=== PATIENT | female | born 1980 | race Caucasian/White ===

== ENCOUNTER 2018-04-26 16:45 | Emergency (ER) | payer MEDICAID, OTHER ==
--- NOTE | 2018-04-26 17:07 | Emergency Department Record ---
History of Present Illness - General Chief Complaint: Abdominal Pain Stated Complaint: PAIN IN LOWER LT ABD Time Seen by Provider: 04/26/18 16:57 Source: Patient Mode of Arrival: Ambulatory Limitations: No limitations - History of Present Illness Initial Comments: The patient is here due to a 2 hour hx of sharp stabbing RLQ AP. The pain is near the inguinal ligament and does seem to radiate to the thigh at times. She denies any nausea, vomiting, diarrhea, dysuria, or any vaginal symptoms. The patient did have a similar issues 2.5 months ago on the L side. At that time she came into the ER and had normal lab tests and a neg pelvic US. Now the patient is concerned she may have a kidney stone. MD Complaint: Abdominal pain Onset/Timin -: Hour(s) Location: RLQ Radiation: RLQ, Other Severity: Moderate Severity scale (1-10): 7 Quality: Aching, Cramping Consistency: Intermittent Improves With: Nothing Context: Foreign travel - Related Data Home Medications Medication Instructions Recorded Confirmed Last Taken No Home Med [NO HOME MEDS] 04/26/18 04/26/18 Unknown Allergies Allergy/AdvReac Type Severity Reaction Status Date / Time No Known Allergies Allergy PT UNSURE Verified 04/26/18 16:55 OF REACTION Travel Screening - Travel/Exposure Within Last 30 Days Have you traveled within the last 30 days?: No - Travel/Exposure Within Last Year Have you traveled outside the [place] in the last year?: No - Additonal Travel Details Have you been exposed to anyone with a communicable illness?: No - Travel Symptoms Symptom Screening: None Review of Systems Constitutional: Denies: Chills, Fever Eyes: Denies: Eye discharge ENT: Denies: Congestion Respiratory: Denies: Cough, Dyspnea Past Medical History - SOCIAL HISTORY Smoking Status: Never smoker Alcohol Use: Occasional Drug Use: None - RESPIRATORY Hx Respiratory Disorders: No - CARDIOVASCULAR Hx Cardio Disorders: No - NEURO Hx Neuro Disorders: No - GI Hx GI Disorders: No - Hx Genitourinary Disorders: No - ENDOCRINE Hx Endocrine Disorders: No - MUSCULOSKELETAL Hx Musculoskeletal Disorders: No - PSYCH Hx Psych Problems: No - HEMATOLOGY/ONCOLOGY Hx Hematology/Oncology Disorders: No Family Medical History Any Significant Family History?: Yes Physical Exam - General General Appearance: Alert, Oriented x3, Cooperative, No acute distress - Head Head exam: Atraumatic, Normocephalic, Normal inspection - Eye Eye exam: Normal appearance, PERRL - Neck Neck exam: Normal inspection, Full ROM. negative: Tenderness - Respiratory Respiratory exam: Normal lung sounds bilaterally. negative: Respiratory distress - Cardiovascular Cardiovascular Exam: Regular rate, Normal rhythm, Normal heart sounds - GI/Abdominal GI/Abdominal exam: Soft, Normal bowel sounds. negative: Distended, Rebound, Rigid, Tenderness (The abdomen is nontender in all 4 quads.) - Extremities Extremities exam: Normal inspection, Full ROM, Normal capillary refill. negative: Tenderness Course Vital Signs 04/26/18 16:47 Temperature 97.8 F Pulse Rate 68 Respiratory 18 Rate Blood Pressure 152/112 Pulse Ox 99 - Reevaluation(s) Reevaluation #1: The patient is doing very well at this time. Her pain has resolved and she is presently pain free. I did discuss the need to see her PCP next week for recheck and to discuss the issues. She has an appointment on Sunday and will comply. 04/26/18 18:44 Medical Decision Making - Data Complexity MDM Data: Labs Ordered and/or Reviewed, X-Ray Ordered and/or Reviewed - Lab Data Result diagrams: 04/26/18 17:10 04/26/18 17:10 - Radiology Data Radiology results: Report reviewed (CT: Neg for any acute abnormalities.) Disposition Disposition: Discharge Clinical Impression: RLQ abdominal pain Disposition: Home, Self-Care Condition: (2) Stable Instructions: Abdominal Pain (ED) Additional Instructions: Please drink plenty of fluids and take Tylenol or Motrin if needed. Please see your family doctor next week as planned and return to the ER for any worsening symptoms. Forms: Patient Portal Access Time of Disposition: 18:43 Quality - Quality Measures Quality Measures: N/A - Blood Pressure Screening View Details: Yes Does Patient Have Any of the Following: No Blood Pressure Classification: Hypertensive Reading Systolic Measurement: 152 Diastolic Measurement: 112 Screening for High Blood Pressure: < First Hypertensive BP, F/U Documented > [ G8950] First Hypertensive Follow-up Interventions: Referral to alternative/primary care provider.
[2018-04-26 17:17] LABS: BASO % 0.4 % (0-6); EOS % 1.7 % (0-6); GRAN % 68.2 % (47-80); HEMATOCRIT 41.4 % (35.0-47.0); HEMOGLOBIN 13.3 gm/dl (11.6-16.0); LYMPH % 21.4 % (16-45); MEAN CELL VOLUME 86.3 fl (81-97); MEAN CORPUSCULAR HEMOGLOBIN 27.7 pg (27-33); MEAN CORPUSCULAR HGB CONC 32.1 g/dl (32-36); MEAN PLATELET VOLUME 10.2 fl (7.4-10.4); MONO % 8.3 % (0-9); PLATELET COUNT 269 K/uL (130-400); RED CELL DISTRIBUTION WIDTH 13.2 % (11.5-14.5); URINE APPEARANCE CLEAR; URINE BILIRUBIN NEGATIVE (NEGATIVE); URINE BLOOD NEGATIVE (NEGATIVE); URINE COLOR YELLOW; URINE GLUCOSE (UA) NEGATIVE (NEGATIVE); URINE KETONE NEGATIVE (NEGATIVE); URINE LEUKOCYTE ESTERASE NEGATIVE (NEGATIVE); URINE NITRITE NEGATIVE (NEGATIVE); URINE PROTEIN NEGATIVE (NEGATIVE); URINE UROBILINOGEN 0.2 E.U./dL (0.20 - 1.00); WHITE BLOOD COUNT W/O DIFF 7.8 K/uL (4.2-12.2)
[2018-04-26 17:21] LABS: HCG,QUALITATIVE URINE NEGATIVE (NEGATIVE)
[2018-04-26] MEDS ORDERED: KETOROLAC 30 MG/ML VIAL IVP ONE (17:21)
[2018-04-26 17:30] LABS: BLOOD UREA NITROGEN 16 mg/dL (6-20); CREATININE 0.8 mg/dL (0.5-0.9); EST GLOMERULAR FILTRATION RATE > 60 mL/min
[2018-04-26 17:33] LABS: GLUCOSE,RANDOM 103 mg/dL (74-109)
--- NOTE | 2018-04-29 09:55 | CT SCAN REPORT ---
EXAM: CT OF THE ABDOMEN AND PELVIS WITHOUT CONTRAST HISTORY: RIGHT LOWER QUADRANT PAIN EXTENDING INTO RIGHT THIGH FOR TWO HOURS. TECHNIQUE: Helical CT examination of the abdomen and pelvis was performed without oral or intravenous contrast administration. Lack of oral and IV contrast utilization limits evaluation of the bowel and solid viscera respectively. Comparison: Pelvic ultrasound dated 01/31/18. FINDINGS: There is mild dependent atelectasis in each lung base. No pleural or pericardial effusion. The heart is not enlarged. The liver, spleen, pancreas, adrenal glands, and kidneys are normal in appearance though the liver dome is not entirely included in the field of view. The gallbladder is unremarkable. No biliary ductal dilatation is seen. No intraabdominal nor retroperitoneal lymphadenopathy. The vasculature as visualized is unremarkable. There is trace fluid in the cul-de-sac. This is nonspecific, but likely physiologic. There are a couple subtle hypodense areas within the uterus with the largest located right of midline measuring 3.3 x 2.1 cm and the smaller located left of midline measuring 2.0 x 2.0 cm. These cannot be further characterized. A uterine fibroid was suggested on prior ultrasound examination. No other evidence of pelvic mass nor adenopathy. No bowel dilatation nor bowel wall thickening. The appendix is visualized and normal in appearance. A few nonenlarged mesenteric lymph nodes are noted within the right lower quadrant, nonspecific. No intrinsic urinary bladder abnormality is seen. A tiny fat filled umbilical hernia is present. Additionally, there is a tiny fat filled ventral wall hernia just above the umbilicus. The abdominal wall is otherwise intact. No lytic or blastic bone lesion. Mild degenerative changes are again noted scattered within the visualized spine. IMPRESSION: 1. SMALL AMOUNT OF FREE FLUID IN THE CUL-DE-SAC IS NONSPECIFIC, BUT LIKELY PHYSIOLOGIC. 2. SUBTLE NODULAR HYPODENSITIES WITHIN THE UTERUS. THESE CANNOT BE FURTHER CHARACTERIZED. A SINGLE FIBROID WAS SUGGESTED ON PRIOR ULTRASOUND EXAMINATION DATED 01/31/18. 3. NORMAL APPENDIX. 4. THERE IS A TINY FAT FILLED UMBILICAL HERNIA AND A TINY FAT FILLED PERIUMBILICAL HERNIA, UNCOMPLICATED. JOB NUMBER: [id number] [facility]
== END 2018-04-26 19:01 | disposition home or self-care (01) ==
LOC: ER 16:45
DX: R10.31 Right lower quadrant pain (principal)
CPT/HCPCS: 74176; 80048; 81003; 81025; 85025; 99283; 99284

== ENCOUNTER 2018-06-29 15:47 | Emergency (ER) | payer MEDICAID, OTHER ==
[2018-06-29] MEDS ORDERED: 0.9 % SODIUM CHLORIDE 1,000 ML BAG IV ONE (16:20)
[2018-06-29] MEDS ORDERED: ONDANSETRON HCL IV 4 MG/2 ML VIAL IVP ONE (16:20)
[2018-06-29] MEDS ORDERED: KETOROLAC 30 MG/ML VIAL IVP ONE (16:20)
--- NOTE | 2018-06-29 16:22 | Emergency Department Record ---
History of Present Illness - General Chief Complaint: Abdominal Pain Stated Complaint: LOW ABD PAIN Time Seen by Provider: 06/29/18 16:04 Source: Patient Mode of Arrival: Ambulatory Limitations: No limitations - History of Present Illness Initial Comments: 37 yo female presents with left lower abdominal pain. She has been having similar pain since January. She reports she has been in the ED, had and US, a CT scan and saw Dr Mena [facility]. No specific diagnosis has been made. No nausea , vomiting or diarrhea. No fever. No chills. The pain does seem to radiate to the back at times. No rash. She states it lasts 3-4 hours then resolves only to return. She has had 2 c-sections in the past. US 01/31/18 Questionable tiny fibroid, small FF in cul de sac. May be hemorrhagic cyst CT 04/26/18 Small FF in sac, possible small fibroid, tiny umbilical hernia, fat filled. MD Complaint: Abdominal pain -: Month(s) (January) Location: LLQ Radiation: LLQ Migration to: LLQ Severity: Moderate Quality: Aching, Cramping, Sharp Consistency: Intermittent Improves With: Nothing Worsens With: Nothing Context: Other Associated Symptoms: Other (vaginal bleeding) - Related Data Previous Rx's Medication Instructions Recorded Metronidazole [Flagyl] 500 mg PO BID #14 tablet 06/29/18 Naproxen [Naprosyn] 500 mg PO Q12H #20 tab. 06/29/18 Allergies Allergy/AdvReac Type Severity Reaction Status Date / Time No Known Allergies Allergy PT UNSURE Verified 04/26/18 16:55 OF REACTION Review of Systems Constitutional: Denies: Chills, Fever, Malaise, Weakness Eyes: Denies: Eye discharge ENT: Denies: Congestion, Throat pain Respiratory: Denies: Cough Cardiovascular: Denies: Chest pain, Palpitations, Syncope Endocrine: Denies: Fatigue Gastrointestinal: Reports: Abdominal pain, Nausea. Denies: Constipation, Diarrhea, Hematemesis, Hematochezia, Melena, Vomiting Genitourinary: Denies: Dysuria, Urgency Skin: Denies: Bruising, Change in color, Rash Neurological: Denies: Numbness, Weakness Psychiatric: Denies: Anxiety Hematological/Lymphatic: Denies: Blood Clots, Easy bleeding, Easy bruising, Swollen glands Past Medical History - SOCIAL HISTORY Smoking Status: Never smoker Drug Use: None - RESPIRATORY Hx Respiratory Disorders: No - CARDIOVASCULAR Hx Cardio Disorders: No - NEURO Hx Neuro Disorders: No - GI Hx GI Disorders: No - Hx Genitourinary Disorders: No - ENDOCRINE Hx Endocrine Disorders: No - MUSCULOSKELETAL Hx Musculoskeletal Disorders: No - PSYCH Hx Psych Problems: No - HEMATOLOGY/ONCOLOGY Hx Hematology/Oncology Disorders: No Physical Exam - General General Appearance: Alert, Oriented x3, Cooperative, No acute distress Limitations: No limitations - Head Head exam: Normal inspection - Eye Eye exam: Normal appearance. negative: Conjunctival injection, Scleral icterus - ENT ENT exam: Normal exam, Mucous membranes moist Ear exam: Normal external inspection Nasal Exam: Normal inspection Mouth exam: Normal external inspection - Neck Neck exam: Normal inspection, Full ROM. negative: Tenderness - Respiratory Respiratory exam: Normal lung sounds bilaterally. negative: Respiratory distress - Cardiovascular Cardiovascular Exam: Regular rate, Normal rhythm, Normal heart sounds - GI/Abdominal GI/Abdominal exam: Soft, Tenderness (The abdomen is soft but tender in the LLQ, no mass or obvious hernia). negative: Distended, Guarding, Rebound, Rigid - Rectal Rectal exam: Deferred - exam: Normal bimanual exam, Vaginal bleeding (few small clots). negative: Abnormal external exam, Adnexal mass (L), Adnexal mass (R), Adnexal tenderness ( L), Adnexal tenderness (R), Cervical discharge, cervical motion tenderness, Vaginal discharge, Vaginal erythema - Extremities Extremities exam: Normal inspection - Back Back exam: Reports: Normal inspection, Full ROM. Denies: Muscle spasm, Rash noted, Tenderness - Neurological Neurological exam: Alert, Normal gait, Oriented X3, Reflexes normal - Psychiatric Psychiatric exam: Normal affect, Normal mood Course - Reevaluation(s) Reevaluation #1: 06/29/18 17:51 The pain is well controlled at this time Pelvic was completed. Awaiting results. 06/29/18 18:10 No acute changes on the CBC or CMP The UA is negative for infection The Wet Prep is consistent with bacterial vaginosis The patient was informed We discussed a consult with General Surgery as an outpatient for her recurrent abdominal pain Rx for Flagyl provided as well. Medical Decision Making - Lab Data Result diagrams: 06/29/18 16:20 06/29/18 16:20 Disposition Disposition: Discharge Clinical Impression: Abdominal pain, Bacterial vaginosis Disposition: Home, Self-Care Condition: (1) Good Instructions: Bacterial Vaginosis (ED), Abdominal Pain (ED) Additional Instructions: Take the prescriptions provided today as directed. Call your family doctor. Call to schedule the next available appointment for a recheck. Return to ED if your symptoms worsen or if you have any new concerns. Review the final Emergency Record and test results with your doctor on follow up You have been referred to Dr Santos in the surgery clinic at [facility] for the current abdominal pain. Prescriptions: Metronidazole [Flagyl] 500 mg PO BID #14 tablet Naproxen [Naprosyn] 500 mg PO Q12H #20 tab.dr Referrals: [facility] Specialty Clinics [Provider Group] Phillip Santos [DOCTOR OF OSTEOPATH] - Forms: Patient Portal Access Time of Disposition: 17:45 Quality - Quality Measures Quality Measures: N/A - Blood Pressure Screening Does Patient Have Any of the Following: No Blood Pressure Classification: Hypertensive Reading Systolic Measurement: 145 Diastolic Measurement: 104 Screening for High Blood Pressure: < Pre-Hypertensive BP, F/U Documented > [ G8950] Pre-Hypertensive Follow-up Interventions: Referral to alternative/primary care provider.
[2018-06-29 17:24] LABS: BASO % 0.5 % (0-6); EOS % 1.4 % (0-6); GRAN % 70.6 % (47-80); HEMOGLOBIN 13.7 gm/dl (11.6-16.0); LYMPH % 21.5 % (16-45); MEAN CELL VOLUME 86.7 fl (81-97); MEAN CORPUSCULAR HEMOGLOBIN 27.6 pg (27-33); MEAN CORPUSCULAR HGB CONC 31.9 g/dl (32-36); MEAN PLATELET VOLUME 11.4 fl (7.4-10.4); PLATELET COUNT 255 K/uL (130-400); RED BLOOD COUNT 4.96 M/uL (3.80-5.40); RED CELL DISTRIBUTION WIDTH 13.1 % (11.5-14.5); WHITE BLOOD COUNT W/O DIFF 7.8 K/uL (4.2-12.2)
[2018-06-29 17:32] LABS: BLOOD UREA NITROGEN 15 mg/dL (6-20); CREATININE 0.8 mg/dL (0.5-0.9); EST GLOMERULAR FILTRATION RATE > 60 mL/min; TOTAL PROTEIN 7.6 g/dL (6.6-8.7)
[2018-06-29 17:34] LABS: GLUCOSE,RANDOM 93 mg/dL (74-109)
[2018-06-29 17:37] LABS: ALB/GLOB RATIO 1.9 (1.1-1.8); ALKALINE PHOSPHATASE 67 U/L (35-104); ALT/SGPT 17 U/L (<33); AST/SGOT 14 U/L (10.0-35.0); LIPASE 25 U/L (13-60)
[2018-06-29 18:04] LABS: URINE APPEARANCE CLEAR; URINE BILIRUBIN NEGATIVE (NEGATIVE); URINE BLOOD SMALL (NEGATIVE); URINE COLOR YELLOW; URINE GLUCOSE (UA) NEGATIVE (NEGATIVE); URINE KETONE NEGATIVE (NEGATIVE); URINE LEUKOCYTE ESTERASE NEGATIVE (NEGATIVE); URINE NITRITE NEGATIVE (NEGATIVE); URINE PROTEIN NEGATIVE (NEGATIVE); URINE UROBILINOGEN 0.2 E.U./dL (0.20 - 1.00)
[2018-06-29] MEDS ORDERED: HYDROCODONE/APAP 5/325MG TABLET PO ONE (18:17)
[2018-06-29 18:20] LABS: URINE EPITHELIAL CELLS 0 - 2 (FEW); URINE RBC 0 - 2 (NONE SEEN); URINE WBC 0 - 2 (0-2/hpf)
== END 2018-06-29 18:44 | disposition home or self-care (01) ==
LOC: ER 15:47
DX: R10.32 Left lower quadrant pain (principal); N76.0 Acute vaginitis; N93.9 Abnormal uterine and vaginal bleeding, unspecified
CPT/HCPCS: 99284 ×2; 96374; 96375; 83690; 85025; 80053; 81001; 84703; Q0111; J1885; J2405; 87210; J7030

== ENCOUNTER 2019-09-27 11:00 | Emergency (ER) | payer BC, OTHER ==
[2019-09-27] MEDS ORDERED: POLYVINYL ALCOHOL OPTH OPTH PRN (11:33)
[2019-09-27] MEDS ORDERED: PROPARACAINE HCL OPTH 15ML BTL OPTH ONE (11:34)
[2019-09-27] MEDS ORDERED: EYE IRRIGATION SOLU. (SOD BOR/BORIC AC/H20/NACL) 118ML BTL OPTH ONE (11:37)
--- NOTE | 2019-09-27 11:46 | Emergency Department Record ---
History of Present Illness - General Chief complaint: Eye Problem Stated complaint: EYE PAIN Time Seen by Provider: 09/27/19 11:22 Mode of Arrival: Ambulatory - History of Present Illness Initial comments: sawing branches over head with a manual saw and got something in he eye right, yesterday Onset/Timin -: Days(s) Onset Description: Sudden Location: Right eye Place: Street/outdoors If Injury: Other Eye Symptoms: Burning, Pain, Redness If Pain, Quality: Other Consistency: Constant Associated Symptoms: None Treatments Prior to Arrival: None - Related Data Visual acuity (L) = 20/: 20 Visual acuity (R) = 20/: 20 With correction: No Hx Tetanus Toxoid Vaccination: No Patient Tetanus UTD (within 5 yrs): No Home Medications Medication Instructions Recorded Confirmed Last Taken Norethindrone-E.estradiol-Iron 1 tab PO DAILY 09/27/19 09/27/19 Unknown [Riana Fe 1.5-30 Tablet] Previous Rx's Medication Instructions Recorded Sulfacetamide Sodium [Bleph-10] 1 - 2 drop AFFEYE QID #5 ml 09/27/19 Allergies Allergy/AdvReac Type Severity Reaction Status Date / Time No Known Allergies Allergy PT UNSURE Verified 04/26/18 16:55 OF REACTION Travel Screening - Travel/Exposure Within Last 30 Days Have you traveled within the last 30 days?: No Review of Systems Reviewed: No additional complaints except as noted below Constitutional: Reports: As per HPI. Denies: Chills, Fever, Malaise, Night sweats, Weakness, Weight change Eyes: Reports: As per HPI, Other (FB sensation right eye). Denies: Eye discharge, Eye pain, Photophobia, Vision change ENT: Reports: As per HPI. Denies: Congestion, Dental pain, Ear pain, Epistaxis, Hearing loss, Throat pain Respiratory: Reports: As per HPI. Denies: Cough, Dyspnea, Hemoptysis, Stridor, Wheezes Cardiovascular: Reports: As per HPI. Denies: Arrhythmia, Chest pain, Dyspnea on exertion, Edema, Murmurs, Orthopnea, Palpitations, Paroxysmal nocturnal dyspnea, Rheumatic Fever, Syncope Endocrine: Reports: As per HPI. Denies: Fatigue, Heat or cold intolerance, Polydipsia, Polyuria Gastrointestinal: Reports: As per HPI. Denies: Abdominal pain, Constipation, Diarrhea, Hematemesis, Hematochezia, Melena, Nausea, Vomiting Genitourinary: Reports: As per HPI. Denies: Abnormal menses, Discharge, Dyspareunia, Dysuria, Frequency, Hematuria, Incontinence, Retention, Urgency Musculoskeletal: Reports: As per HPI. Denies: Arthralgia, Back pain, Gout, Joint swelling, Myalgia, Neck pain Skin: Reports: As per HPI. Denies: Bruising, Change in color, Change in hair/nails, Lesions, Pruritus, Rash Neurological: Reports: As per HPI. Denies: Abnormal gait, Confusion, Headache, Numbness, Paresthesias, Seizure, Tingling, Tremors, Vertigo, Weakness Psychiatric: Reports: As per HPI. Denies: Anxiety, Auditory hallucinations, Depression, Homicidal thoughts, Suicidal thoughts, Visual hallucinations Hematological/Lymphatic: Reports: As per HPI. Denies: Anemia, Blood Clots, Easy bleeding, Easy bruising, Swollen glands Past Medical History - SOCIAL HISTORY Smoking Status: Never smoker - RESPIRATORY Hx Respiratory Disorders: No - CARDIOVASCULAR Hx Cardio Disorders: No - NEURO Hx Neuro Disorders: No - GI Hx GI Disorders: No - Hx Genitourinary Disorders: No - ENDOCRINE Hx Endocrine Disorders: No - MUSCULOSKELETAL Hx Musculoskeletal Disorders: No - PSYCH Hx Psych Problems: No - HEMATOLOGY/ONCOLOGY Hx Hematology/Oncology Disorders: No Family Medical History Any Significant Family History?: No Physical Exam - General General Appearance: Alert, Oriented x3, Cooperative, No acute distress - Head Head exam: Normal inspection - Eye Eye exam: Normal appearance, PERRL, Other (flurscein negative, everted upper eyelid and FB present and removed with a q tip) Pupils: Normal accommodation With correction: No - ENT ENT exam: Normal exam, Mucous membranes moist, Normal external ear exam, Normal orophraynx, TM's normal bilaterally Ear exam: Normal external inspection. negative: External canal tenderness Nasal Exam: Normal inspection. negative: Discharge, Sinus tenderness Mouth exam: Normal external inspection, Tongue normal Teeth exam: Normal inspection. negative: Dental caries Throat exam: Normal inspection. negative: Tonsillar erythema, Tonsillar exudate - Neck Neck exam: Normal inspection, Full ROM. negative: Tenderness - Respiratory Respiratory exam: Normal lung sounds bilaterally. negative: Respiratory distress - Cardiovascular Cardiovascular Exam: Regular rate, Normal rhythm, Normal heart sounds - GI/Abdominal GI/Abdominal exam: Soft, Normal bowel sounds. negative: Tenderness - Rectal Rectal exam: Deferred - exam: Deferred - Extremities Extremities exam: Normal inspection, Full ROM, Normal capillary refill. negative: Tenderness - Back Back exam: Reports: Normal inspection, Full ROM. Denies: Muscle spasm, Rash noted, Tenderness - Neurological Neurological exam: Alert, Normal gait, Oriented X3, Reflexes normal - Psychiatric Psychiatric exam: Normal affect, Normal mood - Skin Skin exam: Dry, Intact, Normal color, Warm Course Vital Signs 09/27/19 11:07 Temperature 97.9 F Pulse Rate 71 Respiratory 18 Rate Blood Pressure 134/91 Pulse Ox 98 - Reevaluation(s) Reevaluation #1: remvved FB from under eylid right upper and her eye feels much better, used a q tip fluorscein negative slit lamp slight irritation of the cornea 09/27/19 11:46 09/27/19 11:49 Disposition Clinical Impression: Foreign body, eye Qualifiers: Encounter type: initial encounter Laterality: right Qualified Code(s): T15.91XA - Foreign body on external eye, part unspecified, right eye, initial encounter Corneal abrasion Qualifiers: Encounter type: initial encounter Laterality: right Qualified Code(s): S05.01XA - Injury of conjunctiva and corneal abrasion without foreign body, right eye, initial encounter Disposition: Home, Self-Care Condition: (1) Good Instructions: Corneal Abrasion (ED), Eye Foreign Body (ED) Additional Instructions: follow up with family Dr in 2-3 days or return to ED if worse sooner Prescriptions: Sulfacetamide Sodium [Bleph-10] 1 - 2 drop AFFEYE QID #5 ml Forms: Patient Portal Access Time of Disposition: 11:55 Quality - Quality Measures Quality Measures: N/A - Blood Pressure Screening Does Patient Have Any of the Following: No Blood Pressure Classification: Hypertensive Reading Systolic Measurement: 134 Diastolic Measurement: 91 Screening for High Blood Pressure: < Pre-Hypertensive BP, F/U Documented > [G8950] Pre-Hypertensive Follow-up Interventions: Referral to alternative/primary care provider.
== END 2019-09-27 12:10 | disposition home or self-care (01) ==
LOC: ER 11:00
DX: T15.91XA Foreign body on external eye, part unspecified, right eye, initial encounter (principal); S05.01XA Injury of conjunctiva and corneal abrasion without foreign body, right eye, initial encounter; W22.8XXA Striking against or struck by other objects, initial encounter; Y93.H9 Activity, other involving exterior property and land maintenance, building and construction; Y92.410 Unspecified street and highway as the place of occurrence of the external cause
CPT/HCPCS: 65205; 99283

== ENCOUNTER 2019-11-17 13:24 | Emergency (ER) | payer BC, OTHER ==
[2019-11-17] MEDS ORDERED: 0.9 % SODIUM CHLORIDE 1,000 ML BAG IV ONE (14:32)
--- NOTE | 2019-11-17 14:34 | Emergency Department Record ---
History of Present Illness - General Chief Complaint: Back Pain/Injury Stated Complaint: LOWER BACK SPASM Time Seen by Provider: 11/17/19 14:25 Source: Patient Mode of Arrival: Ambulatory Limitations: No limitations - History of Present Illness Initial Comments: The patient is here due to multiple complaints. She has had some R lower back spasms off and on for 2 days. She also has been painting her bathroom and when she was finishing yesterday and today she developed a feeling of shaking all over and body spasms. The symptoms did resolve when she left the room yesterday but did return today. After today's episode she did have some dyspnea and chest heaviness like she could not catch her breath. The back spasms seem to be better now. There has been no CP, fever, cough, or vomiting. The patient has no cardiac risk factors and is on OCP's. MD Complaint: Back pain Onset/Timin -: Days(s) Place: Home Severity: Moderate Severity scale (1-10): 5 Context: Other - Related Data Allergies Allergy/AdvReac Type Severity Reaction Status Date / Time No Known Allergies Allergy PT UNSURE Verified 11/17/19 14:25 OF REACTION Travel Screening - Travel/Exposure Within Last 30 Days Have you traveled within the last 30 days?: Yes Location Detail:: [place]. - Travel/Exposure Within Last Year Have you traveled outside the [place] in the last year?: Yes Location Detail:: [place]. - Additonal Travel Details Have you been exposed to anyone with a communicable illness?: No - Travel Symptoms Symptom Screening: None Review of Systems Constitutional: Reports: Malaise. Denies: Chills, Fever Eyes: Denies: Eye discharge ENT: Denies: Congestion Respiratory: Reports: Dyspnea. Denies: Cough, Hemoptysis, Stridor, Wheezes Cardiovascular: Reports: Dyspnea on exertion, Palpitations. Denies: Chest pain Endocrine: Reports: Fatigue Gastrointestinal: Denies: Nausea Genitourinary: Denies: Dysuria Musculoskeletal: Denies: Arthralgia Skin: Denies: Bruising Past Medical History - SOCIAL HISTORY Smoking Status: Never smoker Alcohol Use: Occasional Drug Use: None - RESPIRATORY Hx Respiratory Disorders: No - CARDIOVASCULAR Hx Cardio Disorders: No - NEURO Hx Neuro Disorders: No - GI Hx GI Disorders: No - Hx Genitourinary Disorders: No - ENDOCRINE Hx Endocrine Disorders: No - MUSCULOSKELETAL Hx Musculoskeletal Disorders: No - PSYCH Hx Psych Problems: No - HEMATOLOGY/ONCOLOGY Hx Hematology/Oncology Disorders: No Family Medical History Any Significant Family History?: Yes Physical Exam - General General Appearance: Alert, Oriented x3, Cooperative, No acute distress - Head Head exam: Atraumatic, Normocephalic, Normal inspection - Eye Eye exam: Normal appearance, PERRL, EOMI - ENT Throat exam: Normal inspection. negative: Tonsillar erythema, Tonsillar exudate - Neck Neck exam: Normal inspection, Full ROM. negative: Tenderness - Respiratory Respiratory exam: Normal lung sounds bilaterally. negative: Respiratory distress - Cardiovascular Cardiovascular Exam: Regular rate, Normal rhythm, Systolic murmur (2/6 LLSB). negative: Normal heart sounds - GI/Abdominal GI/Abdominal exam: Soft, Normal bowel sounds. negative: Tenderness - Extremities Extremities exam: Normal inspection, Full ROM, Normal capillary refill. negative: Calf tenderness, Pedal edema, Tenderness - Neurological Neurological exam: Alert, Normal gait, Oriented X3. negative: Motor sensory deficit - Psychiatric Psychiatric exam: negative: Anxious Course Vital Signs 11/17/19 14:20 Temperature 99.4 F Pulse Rate [ 120 H Pulse Ox Probe] Respiratory 20 Rate Blood Pressure 129/94 [Left Arm] Pulse Ox 97 - Reevaluation(s) Reevaluation #1: The patient is doing very well at this time. She denies any CP or SOB or pleuritic pain presently. Her HR is much improved also and she appears very comfortable. I did discuss the elevated D-dimer and the need for a chest CT. 11/17/19 15:28 Reevaluation #2: The patient is doing well at this time and denies any Cp, SOB, or ROB. She is resting comfortably. 11/17/19 17:04 Reevaluation #3: The patient is doing a lot better at this time. She is resting comfortably and has no complaints of pain or discomfort or SOB or dyspnea. I did discuss the neg chest CT for PE with the patient. We did doppler her legs for clots and are still waiting on the results of that test. I did discuss the plan with the patient and did recommend admission due to the low but not zero risk of a cardiac issue. I explained to the patient that her workup is all neg and with her lack of risk factors her risk of having a cardiac event would be < 5%. The patient understands and accepts the risks and would like to go home. She understands that having an undiagnosed cardiac event could lead to an DE, stroke, disability and . The patient understands and accepts the risks. We will do a 2nd EKG and Trop to be sure there is no active event occuring at this time. 11/17/19 18:49 Reevaluation #4: 2nd EKG: NSR at 99, neg ST-T changes. Normal EKG. 11/17/19 18:56 Medical Decision Making - Data Complexity MDM Data: Labs Ordered and/or Reviewed, X-Ray Ordered and/or Reviewed, EKG Ordered and/or Reviewed - Lab Data Result diagrams: 11/17/19 14:46 11/17/19 14:46 - EKG Data -: EKG Interpreted by Me EKG: No Acute Changes (Sinus tach at 106. Neg ST-T changes.) - Radiology Data Radiology results: Report reviewed (CXR: Neg. Chest CTA: Neg for PE.) Disposition Disposition: Discharge Clinical Impression: Muscle spasm Disposition: Home, Self-Care Condition: (2) Stable Instructions: Muscle Spasm (ED) Additional Instructions: Please use Tylenol or Motrin for pain and drink plenty of fluids. Please see your family doctor later this week for recheck and have the D-dimer rechecked. Return to the ER for any return of the pain, any trouble breathing or shortness of breath. Forms: Patient Portal Access Time of Disposition: 19:04 Quality - Quality Measures Quality Measures: N/A - Blood Pressure Screening View Details: Yes Does Patient Have Any of the Following: No Blood Pressure Classification: Pre-Hypertensive BP Reading Systolic Measurement: 130 Diastolic Measurement: 77 Screening for High Blood Pressure: < Pre-Hypertensive BP, F/U Documented > [G8950] Pre-Hypertensive Follow-up Interventions: Referral to alternative/primary care provider.
[2019-11-17 14:54] LABS: ABSOLUTE NEUTROPHIL COUNT 8.02; HEMOGLOBIN 12.7 gm/dl (11.6-16.0); MEAN CELL VOLUME 87.6 fl (81-97); MEAN CORPUSCULAR HEMOGLOBIN 28.5 pg (27-33); MEAN CORPUSCULAR HGB CONC 32.6 g/dl (32-36); MEAN PLATELET VOLUME 10.5 fl (7.4-10.4); PLATELET COUNT 200 K/uL (130-400); RED BLOOD COUNT 4.45 M/uL (3.80-5.40); RED CELL DISTRIBUTION WIDTH 12.6 % (11.5-14.5); WHITE BLOOD COUNT W/O DIFF 8.9 K/uL (4.2-12.2)
[2019-11-17 14:59] LABS: URINE APPEARANCE CLEAR; URINE BILIRUBIN NEGATIVE (NEGATIVE); URINE BLOOD TRACE-I (NEGATIVE); URINE COLOR YELLOW; URINE GLUCOSE (UA) NEGATIVE (NEGATIVE); URINE KETONE 15 mg/dL (NEGATIVE); URINE NITRITE NEGATIVE (NEGATIVE); URINE PROTEIN NEGATIVE (NEGATIVE); URINE UROBILINOGEN 0.2 E.U./dL (0.20 - 1.00)
[2019-11-17 15:05] LABS: BLOOD UREA NITROGEN 16 mg/dL (6-20)
[2019-11-17 15:06] LABS: CREATININE 0.9 mg/dL (0.5-0.9); EST GLOMERULAR FILTRATION RATE > 60 mL/min; TOTAL PROTEIN 6.6 g/dL (6.6-8.7)
[2019-11-17 15:06] LABS: URINE LEUKOCYTE ESTERASE TRACE (NEGATIVE)
[2019-11-17 15:07] LABS: URINE WBC 0 - 2 (0-2/hpf)
[2019-11-17 15:08] LABS: GLUCOSE,RANDOM 108 mg/dL (74-109)
[2019-11-17 15:09] LABS: PLATELET ESTIMATE NORMAL (NORMAL)
[2019-11-17 15:11] LABS: ALB/GLOB RATIO 1.6 (1.1-1.8); ALBUMIN 4.1 g/dL (4.0-5.0); ALKALINE PHOSPHATASE 68 U/L (35-104); ALT/SGPT 10 U/L (<33); AST/SGOT 9 U/L (10.0-35.0)
--- NOTE | 2019-11-17 15:13 | RADIOLOGY REPORT ---
EXAMINATION: Two View Chest Radiographs EXAM DATE: 11/17/2019 3:03 PM TECHNIQUE: Frontal and lateral views INDICATION: ROB COMPARISON: None ENCOUNTER: Not applicable FINDINGS: The heart, mediastinum, and pulmonary vasculature are normal. No lung consolidation or pleural effu sions are present. IMPRESSION: Negative for active intrathoracic disease Dictated by: Bimal Pineda MD on 11/17/2019 3:10 PM. .
[2019-11-17 15:19] LABS: PARTIAL THROMBOPLASTIN TIME 32.7 SECONDS (24.5-39.1); PROTHROMBIN TIME (PATIENT) 10.2 SECONDS (9.5-12.1)
[2019-11-17 15:22] LABS: THYROID STIMULATING HORMONE 1.07 uIU/mL (0.270-4.20)
[2019-11-17] MEDS ORDERED: HEPARIN SODIUM 1000 UNIT/1 ML 10ML VIAL IVP ONE (15:22)
--- NOTE | 2019-11-17 17:23 | CT ANGIOGRAM REPORT ---
EXAMINATION: CT Angiography of the Thorax EXAM DATE: 11/17/2019 4:50 PM TECHNIQUE: Standard protocol CT angiogram images were obtained through the chest following the admini stration of intravenous contrast. Coronal and sagittal MIP 3-D reformations were performed. IV Contrast: The amount and type of contrast are recorded in the medical record. INDICATION: CP and ROB. COMPARISON: CXR 11/17/2019 ENCOUNTER: Not applicable FINDINGS: Pulmonary Artery: No pulmonary embolism is present. Aorta: No thoracic aortic aneurysm or dissection is present. Right Heart Strain: None. Heart : There is no pericardial effusion. Kia and Mediastinum: No lymphadenopathy. Lung Parenchyma: Normal. Central Airways: Normal. Pleural Effusion: None. Upper Abdomen: Small hiatal hernia. Musculoskeletal and Chest Wall: Unremarkable. IMPRESSION: 1. Negative pulmonary CTA 2. Small hiatal hernia Dictated by: Donnie Obrien MD on 11/17/2019 5:17 PM. .
--- NOTE | 2019-11-17 19:08 | ULTRASOUND REPORT ---
EXAMINATION: Bilateral Lower Extremity Venous Ultrasound EXAM DATE: 11/17/2019 6:32 PM TECHNIQUE: Color Doppler, spectral Doppler, and jorge scale evaluation of both lower extremities from the common femoral veins to the popliteal veins. Evaluation of the deep venous system of both lower extremities was performed. INDICATION: leg pain PROCEDURE: Duplex scan of extremity veins including responses to compression and other maneuvers; co mplete bilateral study FINDINGS: Right leg: The deep venous system of the right leg appears normal, with normal flow and compressibili ty. No filling defects are seen. Left leg: The deep venous system of the left leg appears normal, with normal flow and compressibility . No filling defects are seen. IMPRESSION: 1. Negative for DVT. Dictated by: Mario Christensen MD on 11/17/2019 6:59 PM. .
== END 2019-11-17 19:27 | disposition home or self-care (01) ==
LOC: ER 13:24
DX: M62.830 Muscle spasm of back (principal); R07.89 Other chest pain; R06.00 Dyspnea, unspecified; R79.89 Other specified abnormal findings of blood chemistry
CPT/HCPCS: 99284 ×2; 96374; 85730; 85610; 80053; 81001; 84443; 84703; 84484; 85379; 85027; 71046; 93970; 71275; 93005; 93010; Q9967; J7030

== ENCOUNTER 2019-11-19 19:01 | Emergency (ER) | payer BC, OTHER ==
--- NOTE | 2019-11-19 19:09 | Emergency Department Record ---
History of Present Illness - General Chief Complaint: Chest Pain Stated Complaint: CHEST PRESSURE Time Seen by Provider: 11/19/19 19:04 Source: Patient Mode of Arrival: Ambulatory Limitations: No limitations - History of Present Illness Initial Comments: 39 yo female presents with upper respiratory symptoms for about 3 weeks. On Sunday she developed shortness of breath and chest heaviness. She states the onset was while painting at home. She had a dry cough. She feels discomfort with deep inspiration. No fevers but she has been having chills and hot flashes. She was evaluated in the ED on Sunday. Her testing at that time was normal except an elevated D-Dimer. The abnormal D-Dimer was followed by a negative CTA of the chest and negative dopplers of the legs. Her symptoms have not significantly improved. She is not a smoker. No underlying heart of lung disease. She does have a travel history of a cruise to the [facility] October 26 to November 02. ([place], [facility], [facility]) She did do some excursions. She had URI type illness following this with cough, chills, hot flashes and body aches starting about on the 02 of November. This has improved but still mild body aches, occasional chills, no fevers. MD Complaint: Chest pain -: Days(s) Onset: Other Pain Location: Substernal Pain Radiation: None Severity: Moderate Quality: Heaviness Consistency: Constant Improves With: Rest Worsens With: Exertion, Inspiration, Movement Context: Other Anginal Symptoms: Dyspnea Other Symptoms: Other Treatments Prior to Arrival: None - Related Data On Oral Contraceptives: Yes Previous Rx's Medication Instructions Recorded Doxycycline Hyclate 100 mg PO BID #14 cap 11/19/19 Allergies Allergy/AdvReac Type Severity Reaction Status Date / Time No Known Allergies Allergy PT UNSURE Verified 11/19/19 19:29 OF REACTION Review of Systems Constitutional: Reports: Chills, Fever, Malaise, Weakness Eyes: Denies: Eye discharge, Eye pain, Photophobia, Vision change ENT: Reports: Congestion. Denies: Ear pain, Epistaxis Respiratory: Reports: Cough, Dyspnea. Denies: Wheezes Cardiovascular: Reports: Chest pain. Denies: Edema, Palpitations, Syncope Endocrine: Reports: Fatigue. Denies: Polydipsia, Polyuria Gastrointestinal: Denies: Abdominal pain, Diarrhea, Nausea, Vomiting Genitourinary: Denies: Dysuria, Urgency Musculoskeletal: Reports: Myalgia. Denies: Arthralgia, Joint swelling, Neck pain Skin: Denies: Bruising, Change in color, Rash Neurological: Reports: Headache. Denies: Numbness, Vertigo, Weakness Psychiatric: Denies: Anxiety Hematological/Lymphatic: Denies: Easy bleeding, Easy bruising, Swollen glands Past Medical History - SOCIAL HISTORY Smoking Status: Never smoker Alcohol Use: Occasional Drug Use: None - RESPIRATORY Hx Respiratory Disorders: No - CARDIOVASCULAR Hx Cardio Disorders: No - NEURO Hx Neuro Disorders: No - GI Hx GI Disorders: No - Hx Genitourinary Disorders: No - ENDOCRINE Hx Endocrine Disorders: No - MUSCULOSKELETAL Hx Musculoskeletal Disorders: No - PSYCH Hx Psych Problems: No - HEMATOLOGY/ONCOLOGY Hx Hematology/Oncology Disorders: No Family Medical History Any Significant Family History?: No Family Hx Comment (NOT TO BE USED IN PLACE OF ITEMS BELOW): denies Physical Exam - General General Appearance: Alert, Oriented x3, Cooperative, No acute distress Limitations: No limitations - Head Head exam: Atraumatic, Normocephalic, Normal inspection - Eye Eye exam: Normal appearance, PERRL. negative: Conjunctival injection, Scleral icterus - ENT ENT exam: Normal exam, Mucous membranes moist Ear exam: Normal external inspection Nasal Exam: Normal inspection Mouth exam: Normal external inspection Teeth exam: Normal inspection Throat exam: Normal inspection. negative: Tonsillar erythema, Tonsillomegaly, Tonsillar exudate, R peritonsillar mass - Neck Neck exam: Normal inspection, Full ROM. negative: Lymphadenopathy, Tenderness - Respiratory Respiratory exam: Normal lung sounds bilaterally. negative: Accessory muscle use, Decreased breath sounds, Prolonged expiratory, Rhonchi, Stridor, Wheezes - Cardiovascular Cardiovascular Exam: Regular rate, Normal rhythm, Normal heart sounds Peripheral Pulses: 2+: Radial (R), Radial (L) - GI/Abdominal GI/Abdominal exam: Soft. negative: Tenderness - Rectal Rectal exam: Deferred - exam: Deferred - Extremities Extremities exam: Normal inspection. negative: Pedal edema, Tenderness - Back Back exam: Denies: CVA tenderness (R), CVA tenderness (L) - Neurological Neurological exam: Alert, Oriented X3 - Psychiatric Psychiatric exam: Normal affect, Normal mood. 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 11/19/19 21:[address] Mendez of infectious disease at [facility] public transportation inspector. The clinical history, prior ED visit, and current presentation were discussed. Given the patient clinically looks well and not acutely ill he recommends a malaria smear, procalcitonin level, blood cultures. Likely this is a prolonged viral illness from her recent trip. He stated one week course of emperic doxycycline could be given. If the malaria screen is positive he is to be contacted, otherwise the patient can follow up with her PCP. The patient clinically does not appear to be acutely ill. No immediate indication for admission. She will call her PCP in the morning. We discussed at length all test and the results. We discussed returning to the ED for a recheck at any time if she thinks she is not improving. She is a very reliable patient and a good candidate for outpatient follow up. Medical Decision Making - Lab Data Result diagrams: 11/19/19 19:12 11/19/19 19:12 Disposition Disposition: Discharge Clinical Impression: Viral syndrome Disposition: Home, Self-Care Condition: (1) Good Instructions: Chest Pain (ED), Viral Syndrome (ED) Additional Instructions: Call Dr Lilly tomorrow for close follow in the next 1-2 days Return to the ER if worse, short of breath or any new symptoms You Malaria smear will take about 1-2 days Take the Doxycycline until gone as directed You may take Tylenol or Motrin as directed Prescriptions: Doxycycline Hyclate 100 mg PO BID #14 cap Forms: Patient Portal Access Time of Disposition: 21:26 Quality - Quality Measures Quality Measures: N/A - Blood Pressure Screening Does Patient Have Any of the Following: No Blood Pressure Classification: Pre-Hypertensive BP Reading Systolic Measurement: 132 Diastolic Measurement: 86 Screening for High Blood Pressure: < Pre-Hypertensive BP, F/U Documented > [G8950] Pre-Hypertensive Follow-up Interventions: Referral to alternative/primary care provider.
[2019-11-19] MEDS ORDERED: METHYLPREDNISOLONE PF 125MG/VIAL IVP ONE (19:14)
[2019-11-19 19:20] LABS: ABSOLUTE NEUTROPHIL COUNT 7.33; BASO % 0.1 % (0-6); EOS % 0.5 % (0-6); GRAN % 75.9 % (47-80); HEMATOCRIT 38.9 % (35.0-47.0); HEMOGLOBIN 12.5 gm/dl (11.6-16.0); LYMPH % 13.5 % (16-45); MEAN CELL VOLUME 88.6 fl (81-97); MEAN CORPUSCULAR HEMOGLOBIN 28.5 pg (27-33); MEAN CORPUSCULAR HGB CONC 32.1 g/dl (32-36); MEAN PLATELET VOLUME 10.2 fl (7.4-10.4); PLATELET COUNT 219 K/uL (130-400); RED BLOOD COUNT 4.39 M/uL (3.80-5.40); RED CELL DISTRIBUTION WIDTH 12.8 % (11.5-14.5); WHITE BLOOD COUNT W/O DIFF 9.7 K/uL (4.2-12.2)
[2019-11-19 19:29] LABS: BLOOD UREA NITROGEN 11 mg/dL (6-20)
[2019-11-19 19:30] LABS: CREATININE 0.9 mg/dL (0.5-0.9); EST GLOMERULAR FILTRATION RATE > 60 mL/min; TOTAL PROTEIN 7.3 g/dL (6.6-8.7)
[2019-11-19 19:32] LABS: GLUCOSE,RANDOM 104 mg/dL (74-109)
[2019-11-19 19:35] LABS: ALB/GLOB RATIO 1.3 (1.1-1.8); ALBUMIN 4.1 g/dL (4.0-5.0); ALKALINE PHOSPHATASE 70 U/L (35-104); ALT/SGPT 10 U/L (<33); AST/SGOT 10 U/L (10.0-35.0); C-REACTIVE PROTEIN 24.32 mg/dL (<0.5)
[2019-11-19 19:45] LABS: THYROID STIMULATING HORMONE 2.06 uIU/mL (0.270-4.20)
[2019-11-19 19:57] LABS: ERYTHROCYTE SEDIMENTATION RATE 44 mm/hr (0-20)
[2019-11-19] MEDS ORDERED: ACETAMINOPHEN 500 MG TABLET PO ONE (20:23)
[2019-11-19 20:29] LABS: INFLUENZA A NEGATIVE (NEGATIVE); INFLUENZA B NEGATIVE (NEGATIVE)
[2019-11-19] MEDS ORDERED: DOXYCYCLINE HYCLATE 100 MG CAPSULE PO ONE (21:09)
--- NOTE | 2019-11-19 21:19 | RADIOLOGY REPORT ---
EXAMINATION: CHEST 2 VIEWS EXAM DATE: 11/19/2019 9:02 PM TECHNIQUE: Frontal and lateral views of the chest INDICATION: cough fever COMPARISON: 11/17/2019 FINDINGS: The cardiomediastinal silhouette is normal. The lungs are clear. No evidence of pneumonia or pulmonary edema. No pneumothorax or pleural effusion. The bones are unremarkable. IMPRESSION: No evidence of pneumonia. Dictated by: Dwayne Gooden MD on 11/19/2019 9:17 PM. .
== END 2019-11-19 21:46 | disposition home or self-care (01) ==
LOC: ER 19:01
DX: B34.9 Viral infection, unspecified (principal); R07.89 Other chest pain; R06.02 Shortness of breath; R05 Cough; R50.81 Fever presenting with conditions classified elsewhere
CPT/HCPCS: 71046; 80053; 81025; 82550; 83880; 84145; 84443; 84484; 85025; 85651; 86140; 87207; 87400; 93005; 93010; 96374; 99284; J2930